=== PATIENT | female | born 1980 | race American Indian/Alaskan Native ===

== ENCOUNTER 2017-12-07 09:39 | Emergency (ER) | payer OTHER ==
[2017-12-07] MEDS ORDERED: NACL 0.9% 1000 ML 1,000 ML IV ONE (10:36)
[2017-12-07 11:16] LABS: Basophils % (Auto) 0.7 % (0.0-1.8); Eosinophils # (Auto) 0.1 K/mm3 (0.0-0.4); Hematocrit 35.9 % (30.3-42.9); Hemoglobin 11.6 gm/dl (10.1-14.3); Lymphocytes # (Auto) 1.9 K/mm3 (1.2-5.4); Lymphocytes % (Auto) 29.8 % (13.4-35.0); Mean Corpuscular HGB Conc 32 % (30-34); Mean Corpuscular Hemoglobin 31 pg (28-32); Mean Corpuscular Volume 95 fl (79-97); Monocytes # (Auto) 0.7 K/mm3 (0.0-0.8); Monocytes % (Auto) 10.4 % (0.0-7.3); Platelet Count 372 K/mm3 (140-440); Red Blood Count 3.79 M/mm3 (3.65-5.03); Red Cell Distribution Width 20.4 % (13.2-15.2)
[2017-12-07 11:24] LABS: INR 1.15 (0.87-1.13)
[2017-12-07 11:25] LABS: Partial Thromboplastin Time 30.4 Sec. (24.2-36.6)
[2017-12-07 11:29] LABS: Alanine Aminotransferase 45 units/L (7-56); BUN/Creatinine Ratio 8; Blood Urea Nitrogen 4 mg/dL (7-17); Calcium 9.5 mg/dL (8.4-10.2); Hemolysis Index 2; Lipase 14 units/L (13-60)
[2017-12-07] MEDS ORDERED: ATIVAN IV ONE (13:17)
--- NOTE | 2017-12-07 13:21 | Emergency Department Report ---
Blank Doc - Documentation Documentation: ms Souza is a 37 year-old woman with hx of GERD, anemia and alcohol abuse who presents with nausea, vomiting, diarrhea for one week. Triage labs reveal normal lytes, Hgb 11, elevated AST. On exam, tachycardic and tremulous. hx of alcohol withdrawal, feels like she is withdrawing now. Last drink last night. no hx of withdrawal seizure. ordering 2mg IV ativan and 1L NS. Transfer to main ER. Alcohol withdrawal Vital Signs 12/07/17 10:16 Temperature 98.5 F Pulse Rate 119 H Respiratory 18 Rate Blood Pressure 118/92 O2 Sat by Pulse 97 Oximetry Lab Results 12/07/17 12/07/17 12/07/17 Range/Units 10:56 10:56 10:56 WBC 6.4 (4.5-11.0) K/mm3 RBC 3.79 (3.65-5.03) M/mm3 Hgb 11.6 (10.1-14.3) gm/dl Hct 35.9 (30.3-42.9) % MCV 95 (79-97) fl MCH 31 (28-32) pg MCHC 32 (30-34) % RDW 20.4 H (13.2-15.2) % Plt Count 372 (140-440) K/mm3 Lymph % (Auto) 29.8 (13.4-35.0) % [place] % (Auto) 10.4 H (0.0-7.3) % Eos % (Auto) 1.0 (0.0-4.3) % Baso % (Auto) 0.7 (0.0-1.8) % Lymph # 1.9 (1.2-5.4) K/mm3 [place] # 0.7 (0.0-0.8) K/mm3 Eos # 0.1 (0.0-0.4) K/mm3 Baso # 0.0 (0.0-0.1) K/mm3 Seg Neutrophils % 58.1 (40.0-70.0) % Seg Neutrophils # 3.7 (1.8-7.7) K/mm3 PT 15.3 H (12.2-14.9) Sec. INR 1.15 H (0.87-1.13) APTT 30.4 (24.2-36.6) Sec. Sodium 138 (137-145) mmol/L Potassium 4.0 (3.6-5.0) mmol/L Chloride 98.5 (98-107) mmol/L Carbon Dioxide 21 L (22-30) mmol/L Anion Gap 23 mmol/L BUN 4 L (7-17) mg/dL Creatinine 0.5 L (0.7-1.2) mg/dL Estimated GFR > 60 ml/min BUN/Creatinine Ratio 8 % Glucose 94 (65-100) mg/dL Calcium 9.5 (8.4-10.2) mg/dL Total Bilirubin 0.60 (0.1-1.2) mg/dL AST 224 H (5-40) units/L ALT 45 (7-56) units/L Alkaline Phosphatase 86 (35-129) units/L Total Protein 8.2 (6.3-8.2) g/dL Albumin 4.0 (3.9-5) g/dL Albumin/Globulin Ratio 1.0 % Lipase 14 (13-60) units/L Blood Type Antibody Screen 12/07/17 Range/Units 10:56 WBC (4.5-11.0) K/mm3 RBC (3.65-5.03) M/mm3 Hgb (10.1-14.3) gm/dl Hct (30.3-42.9) % MCV (79-97) fl MCH (28-32) pg MCHC (30-34) % RDW (13.2-15.2) % Plt Count (140-440) K/mm3 Lymph % (Auto) (13.4-35.0) % [place] % (Auto) (0.0-7.3) % Eos % (Auto) (0.0-4.3) % Baso % (Auto) (0.0-1.8) % Lymph # (1.2-5.4) K/mm3 [place] # (0.0-0.8) K/mm3 Eos # (0.0-0.4) K/mm3 Baso # (0.0-0.1) K/mm3 Seg Neutrophils % (40.0-70.0) % Seg Neutrophils # (1.8-7.7) K/mm3 PT (12.2-14.9) Sec. INR (0.87-1.13) APTT (24.2-36.6) Sec. Sodium (137-145) mmol/L Potassium (3.6-5.0) mmol/L Chloride (98-107) mmol/L Carbon Dioxide (22-30) mmol/L Anion Gap mmol/L BUN (7-17) mg/dL Creatinine (0.7-1.2) mg/dL Estimated GFR ml/min BUN/Creatinine Ratio % Glucose (65-100) mg/dL Calcium (8.4-10.2) mg/dL Total Bilirubin (0.1-1.2) mg/dL AST (5-40) units/L ALT (7-56) units/L Alkaline Phosphatase (35-129) units/L Total Protein (6.3-8.2) g/dL Albumin (3.9-5) g/dL Albumin/Globulin Ratio % Lipase (13-60) units/L Blood Type O POSITIVE Antibody Screen Negative
[2017-12-07] MEDS ORDERED: ZOFRAN IV ONE (13:50)
--- NOTE | 2017-12-07 14:27 | Emergency Department Report ---
HPI - General Chief Complaint: Nausea/Vomiting/Diarrhea Time Seen by Provider: 12/07/17 13:04 - HPI HPI: 37-year-old AA female presents to the emergency department with a complaint of acute on chronic nausea, vomiting, diarrhea. Patient also admits to feeling anxious, fatigued, dizzy and tremulous. She openly admits to drinking alcohol on a daily basis. Sometimes she says she only drinks a few beers or drinks socially, and other times she drinks to get drunk. She last had any alcohol last night. The patient has been seen at [facility] a few times in the past regarding the nausea, vomiting and diarrhea, as well as some abdominal pain. She says she previously was diagnosed with acid reflux and has been on some medication for it without much relief. When the patient is drinking, she still will have some of the diarrhea but the nausea and vomiting improves. She also has a history of anemia of unknown etiology and has required transfusions in the past. ED Past Medical Hx - Past Medical History Previous Medical History?: Yes Hx GERD: Yes Additional medical history: anemia - Surgical History Past Surgical History?: Yes Additional Surgical History: c section x 3 - Social History Smoking Status: Never Smoker Substance Use Type: Alcohol ED Review of Systems ROS: Stated complaint: ABDOMINAL PAIN Other details as noted in HPI Comment: All other systems reviewed and negative Constitutional: other (fatigue). denies: chills, fever Eyes: denies: eye pain, eye discharge, vision change ENT: denies: ear pain, throat pain Respiratory: denies: cough, shortness of breath, wheezing Cardiovascular: denies: chest pain, palpitations Gastrointestinal: nausea, diarrhea Genitourinary: denies: urgency, dysuria, discharge Musculoskeletal: denies: back pain, joint swelling, arthralgia Skin: denies: rash, lesions Neurological: denies: headache, numbness Physical Exam - Physical Exam Vital Signs: Vital Signs 12/07/17 10:16 Temperature 98.5 F Pulse Rate 119 H Respiratory 18 Rate Blood Pressure 118/92 O2 Sat by Pulse 97 Oximetry Physical Exam: GENERAL: The patient is well-developed well-nourished. HENT: Normocephalic. Atraumatic. Patient has moist mucous membranes. EYES: Extraocular motions are intact. NECK: Supple. Trachea is midline. CHEST/LUNGS: Clear to auscultation. There is no respiratory distress noted. HEART/CARDIOVASCULAR: Regular. There is mild tachycardia. There is no murmur. ABDOMEN: Abdomen is soft, nontender. Patient has normal bowel sounds. There is no abdominal distention. SKIN: Skin is warm and dry. NEURO: The patient is awake, alert, and oriented. The patient is cooperative. The patient has no focal neurologic deficits. The patient has normal speech. Patient has a slight distal upper extremity tremor bilaterally. MUSCULOSKELETAL: There is no tenderness or deformity. There is no limitation range of motion. There is no evidence of acute injury. ED Course Vital Signs 12/07/17 10:16 Temperature 98.5 F Pulse Rate 119 H Respiratory 18 Rate Blood Pressure 118/92 O2 Sat by Pulse 97 Oximetry ED Medical Decision Making - Lab Data Result diagrams: 12/07/17 10:56 12/07/17 10:56 - Medical Decision Making Patient presents with the complaint of nausea, vomiting and diarrhea and also appears slightly tremulous. Some, if not all, of this appears to be related to alcohol withdrawal. The patient does admit to daily alcohol use and she appears to have some level of dependence. Patient came in tachycardic but afebrile. She is awake and alert and does not have any focal, motor or sensory deficits. Labs show an AST of 220 that is greater than a 5-1 ratio of AST compared to ALT. Despite her history of anemia, the hemoglobin is 11.6. Patient was given some Ativan for her withdrawal symptoms, some Zofran for the nausea and a banana bag. The patient has been accepted to [facility] - Differential Diagnosis GERD, gastroenteritis, food poisoning, alcohol withdrawal Critical Care Time: No Critical care attestation.: If time is entered above; I have spent that time in minutes in the direct care of this critically ill patient, excluding procedure time. ED Disposition Clinical Impression: Alcohol withdrawal Qualifiers: Complication of substance-induced condition: with unspecified complication Qualified Code(s): F10.239 - Alcohol dependence with withdrawal, unspecified Alcohol dependence Qualifiers: Substance use status: in withdrawal Complication of substance-induced condition : with unspecified complication Qualified Code(s): F10.239 - Alcohol dependence with withdrawal, unspecified Nausea & vomiting Qualifiers: Vomiting type: unspecified Vomiting Intractability: unspecified Qualified Code( s): R11.2 - Nausea with vomiting, unspecified Diarrhea Qualifiers: Diarrhea type: unspecified type Qualified Code(s): R19.7 - Diarrhea, unspecified Disposition: DC/TX-70 ANOTHER TYPE HLTHCARE Is pt being admited?: No Condition: Fair Referrals: PRIMARY CARE, [Primary Care Provider] - 3-5 Days Time of Disposition: 14:28
[2017-12-07] MEDS ORDERED: VITAMIN B-1 100 MG, FOLVITE 1 MG, INFUVITE 10 ML in NACL 0.9% 1000 ML 1,000 ML IV ONE (14:30)
[2017-12-07 14:41] VITALS: BP 129/89
== END 2017-12-07 16:03 | disposition other institution (70) ==
LOC: ED 09:39
DX: F10.239 Alcohol dependence with withdrawal, unspecified (principal); R11.2 Nausea with vomiting, unspecified; R19.7 Diarrhea, unspecified; R42 Dizziness and giddiness; K21.9 Gastro-esophageal reflux disease without esophagitis; R10.9 Unspecified abdominal pain
CPT/HCPCS: 36415; 80053; 83690; 85025; 85610; 85730; 86850; 86900; 86901; 96361; 96365; 96375; 99283; G0480; J2060; J2405; J3411; J7030; 80320

== ENCOUNTER 2017-12-07 15:58 | Inpatient (IN) | payer OTHER ==
[2017-12-07] MEDS ORDERED: ATIVAN IV PRN (16:39)
[2017-12-07] MEDS ORDERED: PROVENTIL IH PRN (16:39)
[2017-12-07] MEDS ORDERED: ROBAXIN PO PRN (16:39)
[2017-12-07] MEDS ORDERED: SODIUM CHLORIDE FLUSH SYRINGE 10 ML IV PRN (16:39)
[2017-12-07] MEDS ORDERED: ZOFRAN IV PRN (16:39)
[2017-12-07] MEDS ORDERED: BENTYL PO PRN (16:39)
--- NOTE | 2017-12-07 16:39 | History and Physical Report ---
History of Present Illness Date of admission: 12/07/17 16:17 Chief complaint: I feel sick, I need help History of present illness: 37 YO Female with GERD, Anemia, ETOH Dependence presents to ED for evaluation. Pt states that she has been feeling sick for the past 2 days. Pt acknowledges ETOH dependence and states that she drinks on a daily basis, but her last drink was last night. Pt acknowledges nausea, multiple episodes of vomiting, agitation , insomnia, dizziness, abdominal cramping,and multiple episodes of loose stools , feeling agitated, confused, headaches, hand tremors. Pt also acknowledges feeling anxious. Pt seen and evaluated in ED and found to have ETOH Dependence with Alcohol Withdrawl. Pt admitted to [facility] for medical stabilization. Past History Past Medical History: anemia, GERD Past Surgical History: Social history: alcohol abuse Family history: no significant family history (reviewed) Medications and Allergies Allergies Allergy/AdvReac Type Severity Reaction Status Date / Time No Known Allergies Allergy Unverified 12/07/17 10:35 Review of Systems Constitutional: no weight loss, no weight gain, no fever, no chills Ears, nose, mouth and throat: no ear pain, no ear discharge, no tinnitis, no decreased hearing, no nose pain, no nasal congestion, no nasal discharge Breasts: no change in shape, no swelling Cardiovascular: no chest pain, no orthopnea, no palpitations, no rapid/ irregular heart beat, no edema, no syncope Respiratory: no cough, no cough with sputum, no excessive sputum, no hemoptysis , no shortness of breath, no dyspnea on exertion Gastrointestinal: abdominal pain, nausea, vomiting, no change in bowel habits, no hematemesis, no coffee ground emesis, no melena, no hematochezia Genitourinary Female: no flank pain, no menorrhagia, no dysuria, no urinary frequency, no urgency Rectal: no pain, no incontinence, no bleeding Musculoskeletal: no neck stiffness, no neck pain, no shooting arm pain, no arm numbness/tingling, no low back pain, no shooting leg pain, no leg numbness/ tingling, no redness of joints Integumentary: no rash, no pruritis, no redness, no sores, no wounds, no jaundice Neurological: no transient paralysis, no paralysis, no weakness, no parathesias , no numbness, no tingling, no seizures, no syncope Psychiatric: anxiety, change in sleep habits, sleep disturbances, insomnia, change in appetite, hopelessness, anxiety attacks, confusion, irritability, mood swings, no paranoia, no depression Endocrine: no cold intolerance, no heat intolerance, no polyphagia, no excessive thirst, no polydipsia, no polyuria Hematologic/Lymphatic: no lymphadenopathy Allergic/Immunologic: no urticaria, no allergic rhinitis, no wheezing, no persistent infections, no anaphylaxis, no angioedema Exam - Constitutional General appearance: Present: mild distress - EENT Eyes: Present: PERRL ENT: hearing intact, clear oral mucosa - Neck Neck: Present: supple, normal ROM - Respiratory Respiratory effort: normal Respiratory: bilateral: CTA - Cardiovascular Rhythm: other (tachycardia) Heart Sounds: Present: S1 & S2. Absent: rub, click - Extremities Extremities: pulses symmetrical, No edema Peripheral Pulses: within normal limits - Abdominal General gastrointestinal: Present: soft, tender, non-distended, normal bowel sounds Female genitourinary: Present: normal - Integumentary Integumentary: Present: clear, dry, clammy, decreased turgor - Musculoskeletal Musculoskeletal: generalized weakness - Psychiatric Psychiatric: cooperative, agitated - Neurologic Neurologic: CNII-XII intact, moves all extremities Assessment and Plan - Patient Problems (1) Alcohol withdrawal Current Visit: No Status: Acute Qualifiers: Complication of substance-induced condition: with perceptual disturbance Qualified Code(s): F10.232 - Alcohol dependence with withdrawal with perceptual disturbance Plan to address problem: ETOH Withdrawl protocol: IVF resuscitation therapy, librium taper, Banana bag, anti emetic therapy, supportive care. (2) GERD (gastroesophageal reflux disease) Current Visit: Yes Status: Acute Qualifiers: Esophagitis presence: without esophagitis Qualified Code(s): K21.9 - Gastro -esophageal reflux disease without esophagitis Plan to address problem: PPi therapy, supportive care. (3) Alcohol dependence Current Visit: No Status: Acute Qualifiers: Substance use status: in withdrawal Complication of substance-induced condition: with unspecified complication Qualified Code(s): F10.239 - Alcohol dependence with withdrawal, unspecified Plan to address problem: Supportive care, ETOH withdrawl protocol, medical stabilization, (4) DVT prophylaxis Current Visit: Yes Status: Acute Plan to address problem: SCT to BLE while in bed.
[2017-12-07] MEDS ORDERED: VITAMIN B-1 100 MG, FOLVITE 1 MG, INFUVITE 10 ML in NACL 0.9% 1000 ML 2,000 ML IV ONE (16:41)
[2017-12-07] MEDS ORDERED: VITAMIN B-1 100 MG, FOLVITE 1 MG, INFUVITE 10 ML in NACL 0.9% 1000 ML 1,000 ML IV ONE (17:00)
[2017-12-07] MEDS: LIBRIUM PO SCH ×2 (19:21→23:26)
[2017-12-07] MEDS ORDERED: NACL 0.9% 1000 ML 1,000 ML ONE (19:25)
[2017-12-07] MEDS: SODIUM CHLORIDE FLUSH SYRINGE 10 ML IV SCH (21:33)
[2017-12-08] MEDS: TYLENOL PO PRN ×2 (00:41→22:24)
[2017-12-08] MEDS: LIBRIUM PO SCH ×2 (06:20→12:31)
[2017-12-08] MEDS: NACL 0.9% 1000 ML 1,000 ML IV SCH ×3 (06:20→22:13)
[2017-12-08] MEDS: SODIUM CHLORIDE FLUSH SYRINGE 10 ML IV SCH ×2 (09:47→22:26)
--- NOTE | 2017-12-08 16:43 | Progress Note ---
Assessment and Plan 37 YO Female with GERD, Anemia, ETOH Dependence presents to ED for evaluation. Pt states that she has been feeling sick for the past 2 days. Pt acknowledges ETOH dependence and states that she drinks on a daily basis, but her last drink was last night. Pt acknowledges nausea, multiple episodes of vomiting, agitation , insomnia, dizziness, abdominal cramping,and multiple episodes of loose stools , feeling agitated, confused, headaches, hand tremors. Pt also acknowledges feeling anxious. Pt seen and evaluated in ED and found to have ETOH Dependence with Alcohol Withdrawl. Had diarrheo for the past one week Pt admitted to [facility] for medical stabilization. - Alcohol withdrawal ETOH Withdrawl protocol: Continue with IVF resuscitation therapy, librium taper, Banana bag, anti emetic therapy, supportive care. Check labs CBC CCMP, Lipase - GERD (gastroesophageal reflux disease) PPi therapy, supportive care. - Diarrhea and weight loss Diarrhea was 4x today. Watery. No blood Stool studies. Had Negative HIV test in 08/2016. Declined another HIV rtesting now one now - Alcohol dependence Supportive care, ETOH withdrawl protocol, medical stabilization, - DVT prophylaxis SCT to BLE while in bed. Subjective Date of service: 12/08/17 Principal diagnosis: alcohol abuse admitted for detox Interval history: Patient seen and examined. Denies any agitation, chest pain or shortness of breath nausea vomiting. Objective - Exam Narrative Exam: Constitutional: Well-nourished well-developed. In no distress Head: Normocephalic atraumatic Eyes: Pupils are equal round and reactive to light Nose: No enlarged turbinates, no septal deviation. Mouth: Moist mucous membranes. Neck: Supple no thyromegaly. No bruit. No JVD Heart: Regular rate and rhythm, S1-S2 abnormal. No rubs murmurs or gallop Lungs: Clear to auscultation bilaterally no rales or rhonchi Abdomen: Soft, nontender. Bowel sound are present. Extremities: No edema no cyanosis and no clubbing. Neuro: Alert oriented Oriented x3. No focal sensory or motor deficit. Skin: No rashes no hyperemic spots Psychiatry: Calm. - Constitutional Vitals: Vital Signs - 12hr 12/08/17 12/08/17 12/08/17 07:50 10:00 13:55 Temperature 98.8 F 98.6 F Pulse Rate 111 H 101 H Respiratory 18 18 18 Rate Blood Pressure 97/66 119/79 O2 Sat by Pulse 99 100 Oximetry
[2017-12-08] MEDS: FEOSOL PO SCH (17:51)
[2017-12-08] MEDS ORDERED: NON-FORMULARY (Omeprazole [Omeprazole] 20 MG) PO SCH (18:00)
[2017-12-08 19:37] LABS: BUN/Creatinine Ratio 5; Blood Urea Nitrogen 3 mg/dL (7-17); Calcium 8.7 mg/dL (8.4-10.2); Hemolysis Index 122
[2017-12-08 19:40] LABS: Hematocrit 31.1 % (30.3-42.9); Hemoglobin 10.1 gm/dl (10.1-14.3); Mean Corpuscular HGB Conc 33 % (30-34); Mean Corpuscular Hemoglobin 30 pg (28-32); Mean Corpuscular Volume 94 fl (79-97); Red Blood Count 3.32 M/mm3 (3.65-5.03)
[2017-12-08 19:41] LABS: Red Cell Distribution Width 20.2 % (13.2-15.2)
[2017-12-08 20:15] LABS: Anisocytosis 1+; Platelet Clumps 1+; RBC Morphology Normal; Total Cells Counted 100
[2017-12-08 20:16] LABS: Platelet Count 228 K/mm3 (140-440)
[2017-12-08] MEDS: CARAFATE PO SCH (22:25)
[2017-12-08] MEDS: VISTARIL PO PRN (22:25)
[2017-12-09] MEDS: NACL 0.9% 1000 ML 1,000 ML IV SCH ×3 (06:15→22:16)
[2017-12-09 08:45] LABS: Basophils % (Auto) 0.8 % (0.0-1.8); Eosinophils # (Auto) 0.1 K/mm3 (0.0-0.4); Eosinophils % (Auto) 2.2 % (0.0-4.3); Hematocrit 29.3 % (30.3-42.9); Hemoglobin 9.4 gm/dl (10.1-14.3); Lymphocytes # (Auto) 1.6 K/mm3 (1.2-5.4); Mean Corpuscular HGB Conc 32 % (30-34); Mean Corpuscular Hemoglobin 31 pg (28-32); Mean Corpuscular Volume 96 fl (79-97); Monocytes # (Auto) 0.5 K/mm3 (0.0-0.8); Monocytes % (Auto) 10.8 % (0.0-7.3); Platelet Count 305 K/mm3 (140-440); Red Blood Count 3.04 M/mm3 (3.65-5.03)
[2017-12-09 08:54] LABS: Alanine Aminotransferase 29 units/L (7-56); Albumin 3.1 g/dL (3.9-5); BUN/Creatinine Ratio 8; Blood Urea Nitrogen 3 mg/dL (7-17); Calcium 8.7 mg/dL (8.4-10.2); Hemolysis Index 3
[2017-12-09 08:56] LABS: Red Cell Distribution Width 20.6 % (13.2-15.2)
[2017-12-09] MEDS: CARAFATE PO SCH ×2 (09:13→22:17)
[2017-12-09] MEDS: PROTONIX PO SCH (09:13)
[2017-12-09] MEDS: FEOSOL PO SCH (09:13)
[2017-12-09] MEDS: SODIUM CHLORIDE FLUSH SYRINGE 10 ML IV SCH (09:13)
--- NOTE | 2017-12-09 12:13 | Progress Note ---
Assessment and Plan - Patient Problems (1) GERD (gastroesophageal reflux disease) Current Visit: Yes Status: Acute Qualifiers: Esophagitis presence: without esophagitis Qualified Code(s): K21.9 - Gastro -esophageal reflux disease without esophagitis (2) Alcohol withdrawal delirium, acute, hyperactive Current Visit: Yes Status: Acute Plan to address problem: Agent delirium tremors has resolved. Shouldn't stabilize hemodynamically. Scheduled for transfer to behavioral inpatient unit in a.m. on Sunday. History Interval history: Ration doing much better. No evidence of DTs. Has run course of Librium. No shaking. No confusion. Patient alert and oriented 3. Await transfer tomorrow to inpatient behavioral unit Hospitalist Physical - Constitutional Vitals: Temp Pulse Resp BP Pulse Ox 98.5 F 104 H 18 109/75 99 12/09/17 12:02 12/09/17 12:02 12/09/17 12:02 12/09/17 12:02 12/09/17 12:02 General appearance: Present: mild distress - EENT Eyes: Present: PERRL, EOM intact ENT: hearing intact, clear oral mucosa, dentition normal - Neck Neck: Present: supple, normal ROM - Respiratory Respiratory effort: normal Respiratory: bilateral: CTA - Cardiovascular Rhythm: regular - Extremities Extremities: no ischemia, pulses intact, pulses symmetrical, No edema Peripheral Pulses: within normal limits - Abdominal General gastrointestinal: soft, non-tender, non-distended, normal bowel sounds - Integumentary Integumentary: Present: clear, warm, dry, erythema - Psychiatric Psychiatric: intact judgment & insight - Neurologic Neurologic: CNII-XII intact, moves all extremities Results - Labs CBC & Chem 7: 12/09/17 08:06 12/09/17 08:06 Labs: Laboratory Last Values WBC 4.4 K/mm3 (4.5-11.0) L 12/09/17 08:06 RBC 3.04 M/mm3 (3.65-5.03) L 12/09/17 08:06 Hgb 9.4 gm/dl (10.1-14.3) L 12/09/17 08:06 Hct 29.3 % (30.3-42.9) L 12/09/17 08:06 MCV 96 fl (79-97) 12/09/17 08:06 MCH 31 pg (28-32) 12/09/17 08:06 MCHC 32 % (30-34) 12/09/17 08:06 RDW 20.6 % (13.2-15.2) H 12/09/17 08:06 Plt Count 305 K/mm3 (140-440) 12/09/17 08:06 Lymph % (Auto) 36.0 % (13.4-35.0) H 12/09/17 08:06 [place] % (Auto) 10.8 % (0.0-7.3) H 12/09/17 08:06 Eos % (Auto) 2.2 % (0.0-4.3) 12/09/17 08:06 Baso % (Auto) 0.8 % (0.0-1.8) 12/09/17 08:06 Lymph # 1.6 K/mm3 (1.2-5.4) 12/09/17 08:06 [place] # 0.5 K/mm3 (0.0-0.8) 12/09/17 08:06 Eos # 0.1 K/mm3 (0.0-0.4) 12/09/17 08:06 Baso # 0.0 K/mm3 (0.0-0.1) 12/09/17 08:06 Add Manual Diff Complete 12/08/17 18:56 Total Counted 100 12/08/17 18:56 Seg Neutrophils % 50.2 % (40.0-70.0) 12/09/17 08:06 Seg Neuts % (Manual) 54.0 % (40.0-70.0) 12/08/17 18:56 Band Neutrophils % 0 % 12/08/17 18:56 Lymphocytes % (Manual) 34.0 % (13.4-35.0) 12/08/17 18:56 Reactive Lymphs % (Man) 0 % 12/08/17 18:56 Monocytes % (Manual) 10.0 % (0.0-7.3) H 12/08/17 18:56 Eosinophils % (Manual) 1.0 % (0.0-4.3) 12/08/17 18:56 Basophils % (Manual) 1.0 % (0.0-1.8) 12/08/17 18:56 Metamyelocytes % 0 % 12/08/17 18:56 Myelocytes % 0 % 12/08/17 18:56 Promyelocytes % 0 % 12/08/17 18:56 Blast Cells % 0 % 12/08/17 18:56 Nucleated RBC % Not Reportable 12/08/17 18:56 Seg Neutrophils # 2.2 K/mm3 (1.8-7.7) 12/09/17 08:06 Seg Neutrophils # Man 3.5 K/mm3 (1.8-7.7) 12/08/17 18:56 Band Neutrophils # 0.0 K/mm3 12/08/17 18:56 Lymphocytes # (Manual) 2.2 K/mm3 (1.2-5.4) 12/08/17 18:56 Abs React Lymphs (Man) 0.0 K/mm3 12/08/17 18:56 Monocytes # (Manual) 0.6 K/mm3 (0.0-0.8) 12/08/17 18:56 Eosinophils # (Manual) 0.1 K/mm3 (0.0-0.4) 12/08/17 18:56 Basophils # (Manual) 0.1 K/mm3 (0.0-0.1) 12/08/17 18:56 Metamyelocytes # 0.0 K/mm3 12/08/17 18:56 Myelocytes # 0.0 K/mm3 12/08/17 18:56 Promyelocytes # 0.0 K/mm3 12/08/17 18:56 Blast Cells # 0.0 K/mm3 12/08/17 18:56 WBC Morphology Not Reportable 12/08/17 18:56 Hypersegmented Neuts Not Reportable 12/08/17 18:56 Hyposegmented Neuts Not Reportable 12/08/17 18:56 Hypogranular Neuts Not Reportable 12/08/17 18:56 Smudge Cells Not Reportable 12/08/17 18:56 Toxic Granulation Not Reportable 12/08/17 18:56 Toxic Vacuolation Not Reportable 12/08/17 18:56 Dohle Bodies Not Reportable 12/08/17 18:56 Pelger-Huet Anomaly Not Reportable 12/08/17 18:56 Stanton Rods Not Reportable 12/08/17 18:56 Platelet Estimate Not Reportable 12/08/17 18:56 Clumped Platelets 1+ 12/08/17 18:56 Plt Clumps, EDTA Not Reportable 12/08/17 18:56 Large Platelets Not Reportable 12/08/17 18:56 Giant Platelets Not Reportable 12/08/17 18:56 Platelet Satelliting Not Reportable 12/08/17 18:56 Plt Morphology Comment Not Reportable 12/08/17 18:56 RBC Morphology Normal 12/08/17 18:56 Dimorphic RBCs Not Reportable 12/08/17 18:56 Polychromasia Not Reportable 12/08/17 18:56 Hypochromasia Not Reportable 12/08/17 18:56 Poikilocytosis Not Reportable 12/08/17 18:56 Anisocytosis 1+ 12/08/17 18:56 Microcytosis Not Reportable 12/08/17 18:56 Macrocytosis Not Reportable 12/08/17 18:56 Spherocytes Not Reportable 12/08/17 18:56 Pappenheimer Bodies Not Reportable 12/08/17 18:56 Sickle Cells Not Reportable 12/08/17 18:56 Target Cells Not Reportable 12/08/17 18:56 Tear Drop Cells Not Reportable 12/08/17 18:56 Ovalocytes Not Reportable 12/08/17 18:56 Helmet Cells Not Reportable 12/08/17 18:56 [place] Bodies Not Reportable 12/08/17 18:56 [place] Rings Not Reportable 12/08/17 18:56 Kaylin Cells Not Reportable 12/08/17 18:56 Bite Cells Not Reportable 12/08/17 18:56 Crenated Cell Not Reportable 12/08/17 18:56 Elliptocytes Not Reportable 12/08/17 18:56 Acanthocytes (Spur) Not Reportable 12/08/17 18:56 Rouleaux Not Reportable 12/08/17 18:56 Hemoglobin C Crystals Not Reportable 12/08/17 18:56 Schistocytes Not Reportable 12/08/17 18:56 Malaria parasites Not Reportable 12/08/17 18:56 Fransico Bodies Not Reportable 12/08/17 18:56 Hem Pathologist Commnt No 12/08/17 18:56 Sodium 141 mmol/L (137-145) 12/09/17 08:06 Potassium 4.0 mmol/L (3.6-5.0) 12/09/17 08:06 Chloride 106.9 mmol/L (98-107) 12/09/17 08:06 Carbon Dioxide 24 mmol/L (22-30) 12/09/17 08:06 Anion Gap 14 mmol/L 12/09/17 08:06 BUN 3 mg/dL (7-17) L 12/09/17 08:06 Creatinine 0.4 mg/dL (0.7-1.2) L 12/09/17 08:06 Estimated GFR > 60 ml/min 12/09/17 08:06 BUN/Creatinine Ratio 8 % 12/09/17 08:06 Glucose 83 mg/dL (65-100) 12/09/17 08:06 Calcium 8.7 mg/dL (8.4-10.2) 12/09/17 08:06 Phosphorus 3.30 mg/dL (2.5-4.5) 12/09/17 08:06 Magnesium 1.60 mg/dL (1.7-2.3) L 12/09/17 08:06 Total Bilirubin 0.30 mg/dL (0.1-1.2) 12/09/17 08:06 AST 62 units/L (5-40) H 12/09/17 08:06 ALT 29 units/L (7-56) 12/09/17 08:06 Alkaline Phosphatase 75 units/L (35-129) 12/09/17 08:06 Total Protein 6.1 g/dL (6.3-8.2) L D 12/09/17 08:06 Albumin 3.1 g/dL (3.9-5) L 12/09/17 08:06 Albumin/Globulin Ratio 1.0 % 12/09/17 08:06 Lipase 45 units/L (13-60) 12/08/17 18:56
[2017-12-09] MEDS: TYLENOL PO PRN (13:51)
[2017-12-10 07:36] LABS: Basophils % (Auto) 0.6 % (0.0-1.8); Eosinophils # (Auto) 0.1 K/mm3 (0.0-0.4); Eosinophils % (Auto) 1.8 % (0.0-4.3); Hematocrit 25.1 % (30.3-42.9); Hemoglobin 7.9 gm/dl (10.1-14.3); Lymphocytes # (Auto) 1.8 K/mm3 (1.2-5.4); Lymphocytes % (Auto) 34.9 % (13.4-35.0); Mean Corpuscular HGB Conc 32 % (30-34); Mean Corpuscular Hemoglobin 31 pg (28-32); Mean Corpuscular Volume 97 fl (79-97); Monocytes # (Auto) 0.6 K/mm3 (0.0-0.8); Monocytes % (Auto) 12.5 % (0.0-7.3); Platelet Count 301 K/mm3 (140-440)
[2017-12-10 07:39] LABS: Alanine Aminotransferase 20 units/L (7-56); Albumin 2.5 g/dL (3.9-5); BUN/Creatinine Ratio 10; Blood Urea Nitrogen 5 mg/dL (7-17); Calcium 8.3 mg/dL (8.4-10.2); Hemolysis Index 15
[2017-12-10 07:45] LABS: Red Cell Distribution Width 20.6 % (13.2-15.2)
[2017-12-10] MEDS: PROTONIX PO SCH (09:33)
[2017-12-10] MEDS: FEOSOL PO SCH (09:33)
[2017-12-10] MEDS: CARAFATE PO SCH ×2 (09:33→22:28)
[2017-12-10] MEDS: SODIUM CHLORIDE FLUSH SYRINGE 10 ML IV SCH (09:34)
[2017-12-10] MEDS: VISTARIL PO PRN (09:36)
[2017-12-10] MEDS ORDERED: MAGNESIUM SULFATE 2GM/50ML 2 GM/50 ML BAG IV ONE (09:53)
[2017-12-10 12:03] LABS: Iron 213 ug/dL (37-170); Total Iron Binding Capacity 268 mcg/dL (250-450)
[2017-12-10] MEDS: NACL 0.9% 1000 ML 1,000 ML IV SCH ×2 (14:30→22:26)
--- NOTE | 2017-12-10 18:26 | Discharge Summary ---
Providers - Providers Date of Admission: 12/07/17 16:17 Date of discharge: 12/10/17 Attending physician: ALTA RODRIGUEZ none Primary care physician: ADMIN PROG COORD Hospitalization Reason for admission: alcohol withdrawal Pertinent studies: none Procedures: none Hospital course: 37 YO Female with GERD, Anemia, ETOH Dependence presents to ED for evaluation. Pt states that she has been feeling sick for the past 2 days. Pt acknowledges ETOH dependence and states that she drinks on a daily basis, but her last drink was last night. Pt acknowledges nausea, multiple episodes of vomiting, agitation , insomnia, dizziness, abdominal cramping,and multiple episodes of loose stools , feeling agitated, confused, headaches, hand tremors. Pt also acknowledges feeling anxious. Pt seen and evaluated in ED and found to have ETOH Dependence with Alcohol Withdrawl. Had diarrheo for the past one week Pt admitted to [facility] for medical stabilization. on admission pt was commence of bana bag CIWA protocol with libruim. Hypoklameia and hypomganesemia identified and corrected. Pt strate having her period yessterday, heavy which is her usual she said. She has been anemic because of it. Hemoglobin dropped from 9.4 to 7.4. and furhte down to 7.2 One unit of blood ordered and given. Discharge yesterday held. Patient felt beeter advised to f/u with PCP who will refe to gyne for possible endometrial ablation since she had 5 children and her tube are tied. trmor and nrevoubnedsimprove and pt discharged Disposition: DC-01 TO HOME OR SELFCARE Time spent for discharge: 40 min - Discharge Diagnoses (1) Anemia Status: Acute (2) Alcohol withdrawal delirium, acute, hyperactive Status: Acute (3) GERD (gastroesophageal reflux disease) Status: Acute Qualifiers: Esophagitis presence: without esophagitis Qualified Code(s): K21.9 - Gastro -esophageal reflux disease without esophagitis Core Measure Documentation - Palliative Care Palliative Care/ Comfort Measures: Not Applicable - Core Measures Any of the following diagnoses?: none Exam - Physical Exam Narrative exam: Constitutional: Well-nourished well-developed. In no distress Head: Normocephalic atraumatic Eyes: Pupils are equal round and reactive to light. palor Nose: No enlarged turbinates, no septal deviation. Mouth: Moist mucous membranes. Neck: Supple no thyromegaly. No bruit. No JVD Heart: Regular rate and rhythm, S1-S2 abnormal. No rubs murmurs or gallop Lungs: Clear to auscultation bilaterally no rales or rhonchi Abdomen: Soft, nontender. Bowel sound are present. Extremities: No edema no cyanosis and no clubbing. Neuro: Alert oriented Oriented x3. No focal sensory or motor deficit. Skin: No rashes no hyperemic spots Psychiatry: Calm. - Constitutional Vitals: Temp Pulse Resp BP Pulse Ox 99.1 F 103 H 20 125/71 100 12/10/17 17:20 12/10/17 17:20 12/10/17 17:20 12/10/17 17:20 12/10/17 17:20 Plan Follow up with: PRIMARY CARE, [Primary Care Provider] - 7 Days Prescriptions: Ferrous Sulfate [Iron] 325 mg PO DAILY #60 tablet hydrOXYzine PAMOATE [Vistaril] 50 mg PO Q6H PRN #60 capsule PRN Reason: Anxiety Mild Methocarbamol [Robaxin TAB] 750 mg PO Q6H PRN #60 tablet PRN Reason: Muscle Ache Pantoprazole [Protonix TAB] 40 mg PO DAILY #30 tablet Sucralfate 1 gm PO BID #60 tablet
--- NOTE | 2017-12-10 19:05 | Progress Note ---
Assessment and Plan 37 YO Female with GERD, Anemia, ETOH Dependence presents to ED for evaluation. Pt states that she has been feeling sick for the past 2 days. Pt acknowledges ETOH dependence and states that she drinks on a daily basis, but her last drink was last night. Pt acknowledges nausea, multiple episodes of vomiting, agitation , insomnia, dizziness, abdominal cramping,and multiple episodes of loose stools , feeling agitated, confused, headaches, hand tremors. Pt also acknowledges feeling anxious. Pt seen and evaluated in ED and found to have ETOH Dependence with Alcohol Withdrawl. Had diarrheo for the past one week Pt admitted to [facility] for medical stabilization. - Alcohol withdrawal ETOH Withdrawl protocol: Continue with IVF resuscitation therapy, librium taper, Banana bag, anti emetic therapy, supportive care. Check labs CBC CCMP, Lipase - GERD (gastroesophageal reflux disease) PPi therapy, supportive care. - Hypomagnesemia. Supplemented. Repeat magnesium level. - Anemia from Menorrhagia Comments patient on ferrous sulfate 325 mg 1 by mouth twice a day. Vitamin C 500 mg by mouth qd. Counseling on considering endometrial ablation was done given the fact that patient has 5 children and tubal ligation - Diarrhea and weight loss - resolving Diarrhea was 4x today. Watery. No blood Stool studies. Had Negative HIV test in 08/2016. Declined another HIV rtesting now one now - Alcohol dependence Supportive care, ETOH withdrawal protocol, medical stabilization, - DVT prophylaxis SCT to BLE while in bed. - Disposition: Repeat magnesium level. Repeat H&H. If magnesium level is normal we'll discharge home tomorrow if H&H is 2 kn LAD and - Patient Problems (1) Anemia Current Visit: Yes Status: Acute (2) Alcohol withdrawal delirium, acute, hyperactive Current Visit: Yes Status: Acute (3) GERD (gastroesophageal reflux disease) Current Visit: Yes Status: Acute Qualifiers: Esophagitis presence: without esophagitis Qualified Code(s): K21.9 - Gastro -esophageal reflux disease without esophagitis Subjective Date of service: 12/10/17 Principal diagnosis: alcohol abuse admitted for detox Interval history: Patient seen and examined. Denies any agitation, chest pain or shortness of breath nausea vomiting. Patient seen to have started having heavy menstrual period today. Usually has heavy periods and passes clots during each menstruation. She has a history of anemia from menorrhagia. Objective - Exam Narrative Exam: Constitutional: Well-nourished well-developed.In no distress Head: Normocephalic atraumatic Eyes: Pupils are equal round and reactive to light. palor Nose: No enlarged turbinates, no septal deviation. Mouth: Moist mucous membranes. Neck: Supple no thyromegaly. No bruit. No JVD Heart: Regular rate and rhythm, S1-S2 abnormal. No rubs murmurs or gallop Lungs: Clear to auscultation bilaterally no rales or rhonchi Abdomen: Soft, nontender. Bowel sound are present. Extremities: No edema no cyanosis and no clubbing. Neuro: Alert oriented Oriented x3. No focal sensory or motor deficit. Skin: No rashes no hyperemic spots Psychiatry: Calm. - Constitutional Vitals: Vital Signs - 12hr 12/10/17 12/10/17 12/10/17 07:57 10:00 13:19 Temperature 98.9 F 99.1 F Pulse Rate 98 H Respiratory 20 20 20 Rate Blood Pressure 99/62 103/70 O2 Sat by Pulse 100 Oximetry 12/10/17 17:20 Temperature 99.1 F Pulse Rate 103 H Respiratory 20 Rate Blood Pressure 125/71 O2 Sat by Pulse 100 Oximetry - Labs CBC & Chem 7: 12/10/17 06:59 12/10/17 06:59 Labs: Abnormal lab results 12/10/17 12/10/17 12/10/17 Range/Units 06:59 06:59 11:10 RBC 2.60 L (3.65-5.03) M/mm3 Hgb 7.9 L (10.1-14.3) gm/dl Hct 25.1 L (30.3-42.9) % RDW 20.6 H (13.2-15.2) % [place] % (Auto) 12.5 H (0.0-7.3) % Chloride 110.5 H (98-107) mmol/L Carbon Dioxide 20 L (22-30) mmol/L BUN 5 L (7-17) mg/dL Creatinine 0.5 L (0.7-1.2) mg/dL Calcium 8.3 L (8.4-10.2) mg/dL Iron 213 H (37-170) ug/dL Total Protein 5.2 L (6.3-8.2) g/dL Albumin 2.5 L (3.9-5) g/dL
[2017-12-10] MEDS: VITAMIN C PO SCH (22:33)
[2017-12-11 05:40] LABS: Basophils % (Auto) 0.5 % (0.0-1.8); Eosinophils # (Auto) 0.1 K/mm3 (0.0-0.4); Eosinophils % (Auto) 1.9 % (0.0-4.3); Hematocrit 23.2 % (30.3-42.9); Hemoglobin 7.4 gm/dl (10.1-14.3); Lymphocytes # (Auto) 1.8 K/mm3 (1.2-5.4); Lymphocytes % (Auto) 33.6 % (13.4-35.0); Mean Corpuscular HGB Conc 32 % (30-34); Mean Corpuscular Hemoglobin 31 pg (28-32); Mean Corpuscular Volume 96 fl (79-97); Monocytes # (Auto) 0.6 K/mm3 (0.0-0.8); Platelet Count 317 K/mm3 (140-440); Red Blood Count 2.42 M/mm3 (3.65-5.03)
[2017-12-11 06:11] LABS: Alanine Aminotransferase 19 units/L (7-56); Albumin 2.4 g/dL (3.9-5); BUN/Creatinine Ratio 13; Blood Urea Nitrogen 5 mg/dL (7-17); Calcium 7.9 mg/dL (8.4-10.2); Hemolysis Index 3
--- NOTE | 2017-12-11 07:54 | Progress Note ---
Assessment and Plan 37 YO Female with GERD, Anemia, ETOH Dependence presents to ED for evaluation. Pt states that she has been feeling sick for the past 2 days. Pt acknowledges ETOH dependence and states that she drinks on a daily basis, but her last drink was last night. Pt acknowledges nausea, multiple episodes of vomiting, agitation , insomnia, dizziness, abdominal cramping,and multiple episodes of loose stools , feeling agitated, confused, headaches, hand tremors. Pt also acknowledges feeling anxious. Pt seen and evaluated in ED and found to have ETOH Dependence with Alcohol Withdrawl. Had diarrheo for the past one week Pt admitted to [facility] for medical stabilization. - Alcohol withdrawal ETOH Withdrawl protocol: Continue with IVF resuscitation therapy, librium taper, Banana bag, anti emetic therapy, supportive care. Check labs CBC CCMP, Lipase - GERD (gastroesophageal reflux disease) PPi therapy, supportive care. - Hypomagnesemia - corrected Supplemented. Repeat magnesium level. - Hypokalemia supplement - Anemia from Menorrhagia worsening. Xfue and tehnd/c home Comments patient on ferrous sulfate 325 mg 1 by mouth twice a day. Vitamin C 500 mg by mouth qd. Counseling on considering endometrial ablation was done given the fact that patient has 5 children and tubal ligation - Diarrhea and weight loss - resolving Diarrhea was 4x today. Watery. No blood Stool studies. Had Negative HIV test in 08/2016. Declined another HIV rtesting now one now - Alcohol dependence Supportive care, ETOH withdrawal protocol, medical stabilization, - DVT prophylaxis SCT to BLE while in bed. - Disposition: Repeat magnesium level. Repeat H&H. If magnesium level is normal we'll discharge home tomorrow if H&H is 2 kn LAD and - Patient Problems (1) Anemia Current Visit: Yes Status: Acute (2) Alcohol withdrawal delirium, acute, hyperactive Current Visit: Yes Status: Acute (3) GERD (gastroesophageal reflux disease) Current Visit: Yes Status: Acute Qualifiers: Esophagitis presence: without esophagitis Qualified Code(s): K21.9 - Gastro -esophageal reflux disease without esophagitis Subjective Date of service: 12/11/17 Principal diagnosis: alcohol abuse admitted for detox Interval history: Patient seen and examined. Denies any agitation, chest pain or shortness of breath nausea vomiting. Patient seen to have started having heavy menstrual period today. Usually has heavy periods and passes clots during each menstruation. She has a history of anemia from menorrhagia. Objective - Exam Narrative Exam: Constitutional: Well-nourished well-developed. In no distress Head: Normocephalic atraumatic Eyes: Pupils are equal round and reactive to light. palor Nose: No enlarged turbinates, no septal deviation. Mouth: Moist mucous membranes. Neck: Supple no thyromegaly. No bruit. No JVD Heart: Regular rate and rhythm, S1-S2 abnormal. No rubs murmurs or gallop Lungs: Clear to auscultation bilaterally no rales or rhonchi Abdomen: Soft, nontender. Bowel sound are present. Extremities: No edema no cyanosis and no clubbing. Neuro: Alert oriented Oriented x3. No focal sensory or motor deficit. Skin: No rashes no hyperemic spots Psychiatry:Calm. - Labs CBC & Chem 7: 12/11/17 05:00 12/11/17 05:00 Labs: Abnormal lab results 12/10/17 12/11/17 12/11/17 Range/Units 11:10 05:00 05:00 RBC 2.42 L (3.65-5.03) M/mm3 Hgb 7.4 L (10.1-14.3) gm/dl Hct 23.2 L (30.3-42.9) % RDW 21.0 H (13.2-15.2) % [place] % (Auto) 11.0 H (0.0-7.3) % Potassium 3.5 L (3.6-5.0) mmol/L Chloride 113.3 H (98-107) mmol/L Carbon Dioxide 20 L (22-30) mmol/L BUN 5 L (7-17) mg/dL Creatinine 0.4 L (0.7-1.2) mg/dL Calcium 7.9 L (8.4-10.2) mg/dL Iron 213 H (37-170) ug/dL AST 47 H (5-40) units/L Total Protein 5.1 L (6.3-8.2) g/dL Albumin 2.4 L (3.9-5) g/dL
[2017-12-11] MEDS ORDERED: K-DUR PO NR (08:21)
[2017-12-11] MEDS ORDERED: NACL 0.9% 500 ML 500 ML IV NR (09:00)
[2017-12-11] MEDS ORDERED: KCL 10MEQ/100ML 10 MEQ/100 ML BAG IV SCH (09:00)
[2017-12-11] MEDS: CARAFATE PO SCH (09:24)
[2017-12-11] MEDS: FEOSOL PO SCH (09:24)
[2017-12-11] MEDS: PROTONIX PO SCH (09:24)
[2017-12-11] MEDS: VITAMIN C PO SCH (09:24)
[2017-12-11] MEDS: TYLENOL PO PRN (10:07)
[2017-12-11] MEDS: SODIUM CHLORIDE FLUSH SYRINGE 10 ML IV SCH (10:22)
[2017-12-11 13:40] VITALS: BP 116/77
== END 2017-12-11 14:30 | disposition home or self-care (01) | DRG 760 ==
LOC: 2B-ACE 15:58 → UNDOADMIN 15:58 → MSU 16:17
PROVIDERS: ADMIT Internal Medicine; ATTEND Family Medicine
PROC: 30233N1 Transfusion of Nonautologous Red Blood Cells into Peripheral Vein, Percutaneous Approach (ICD-10-PCS; principal; 2017-12-11)
DX: N92.0 Excessive and frequent menstruation with regular cycle (principal); F10.231 Alcohol dependence with withdrawal delirium; K21.9 Gastro-esophageal reflux disease without esophagitis; D64.9 Anemia, unspecified; R19.7 Diarrhea, unspecified; E03.9 Hypothyroidism, unspecified; E83.42 Hypomagnesemia; Y90.9 Presence of alcohol in blood, level not specified; Z71.89 Other specified counseling
CPT/HCPCS: 36415; 80048; 80053; 82607; 82747; 83550; 83690; 83735; 84100; 85007; 85025; 86850; 86900; 86901; 86920; J3411; J3475; J3480; J7030; J7040; P9016; Q0177

== ENCOUNTER 2018-02-03 13:32 | Emergency (ER) | payer OTHER ==
[2018-02-03 16:02] LABS: Basophils % (Auto) 0.4 % (0.0-1.8); Eosinophils % (Auto) 0.4 % (0.0-4.3); Hematocrit 36.7 % (30.3-42.9); Hemoglobin 11.8 gm/dl (10.1-14.3); Lymphocytes # (Auto) 1.7 K/mm3 (1.2-5.4); Lymphocytes % (Auto) 24.1 % (13.4-35.0); Mean Corpuscular HGB Conc 32 % (30-34); Mean Corpuscular Hemoglobin 31 pg (28-32); Mean Corpuscular Volume 95 fl (79-97); Monocytes # (Auto) 0.7 K/mm3 (0.0-0.8); Monocytes % (Auto) 10.1 % (0.0-7.3); Platelet Count 247 K/mm3 (140-440); Red Blood Count 3.88 M/mm3 (3.65-5.03)
[2018-02-03 16:19] LABS: BUN/Creatinine Ratio 7; Blood Urea Nitrogen 4 mg/dL (7-17); Hemolysis Index 7
[2018-02-03] MEDS ORDERED: ATIVAN IV ONE (16:52)
[2018-02-03] MEDS ORDERED: NACL 0.9% 1000 ML 1,000 ML IV ONE (16:52)
[2018-02-03] MEDS ORDERED: ANTIVERT PO ONE (16:52)
[2018-02-03] MEDS ORDERED: ZOFRAN IV ONE (16:52)
--- NOTE | 2018-02-03 17:01 | Emergency Department Report ---
HPI - General Chief Complaint: Alcohol Time Seen by Provider: 02/03/18 16:42 - HPI HPI: Room 25 The patient is a 37-year-old female presenting with a chief complaint of vomiting, diarrhea and dizziness. The patient states for one week she's had nausea vomiting and diarrhea the patient states she's had a decreased appetite cramping along the lateral aspect of both sides of the abdomen. Patient denies any sick contacts. The patient states she normally drinks three 12 ounce beers daily and she stopped drinking them approximately 4 days ago. The patient states she is vertigo for the past 3 days. The patient also states she feels cold and shaky but this is chronic. Patient complains of pressure in her head Location: [See above] Duration: One week Quality: Nausea, cramping Severity: Moderate Modifying factors: [see above] Context: [see above] Mode of transportation: [not driving] ED Past Medical Hx - Past Medical History Hx GERD: Yes Additional medical history: anemia - Surgical History Past Surgical History?: No Additional Surgical History: c section x 3 - Family History Family history: no significant - Social History Smoking Status: Never Smoker Substance Use Type: None (denies illicit drug use), Alcohol (none 4 days) - Medications Home Medications: Home Medications Medication Instructions Recorded Confirmed Last Taken Type ALBUTEROL NEB's [Proventil 0.083% 2.5 mg IH Q4HRT PRN nebu 12/10/17 Unknown Rx NEBS] Ferrous Sulfate [Iron] 325 mg PO DAILY #60 tablet 12/10/17 Unknown Rx Methocarbamol [Robaxin TAB] 750 mg PO Q6H PRN #60 tablet 12/10/17 Unknown Rx Pantoprazole [Protonix TAB] 40 mg PO DAILY #30 tablet 12/10/17 Unknown Rx Sucralfate 1 gm PO BID #60 tablet 12/10/17 Unknown Rx hydrOXYzine PAMOATE [Vistaril] 50 mg PO Q6H PRN #60 capsule 12/10/17 Unknown Rx Ondansetron [Zofran ODT TAB] 8 mg PO Q8HR #20 tab.rapdis 02/04/18 Unknown Rx chlordiazePOXIDE [Librium] 25 mg PO BID #8 capsule 02/04/18 Unknown Rx ED Review of Systems ROS: Stated complaint: WITHDRAWL ALCHOL/DIZZY LIGHTHEADED Other details as noted in HPI Constitutional: denies: fever Eyes: denies: eye pain ENT: denies: throat pain Respiratory: no symptoms reported Cardiovascular: denies: chest pain Endocrine: no symptoms reported Gastrointestinal: abdominal pain (cramping), nausea, vomiting, diarrhea Genitourinary: denies: dysuria Musculoskeletal: denies: back pain Neurological: headache (pressure), vertigo Physical Exam - Physical Exam Vital Signs: Vital Signs 02/03/18 14:43 Temperature 98.8 F Pulse Rate 91 H Respiratory 18 Rate Blood Pressure 127/88 O2 Sat by Pulse 99 Oximetry Physical Exam: GENERAL: The patient is well-developed well-nourished female lying on stretcher not appearing to be in acute distress. [] HEENT: Normocephalic. Atraumatic. Extraocular motions are intact. Patient has moist mucous membranes. No nystagmus NECK: Supple. No meningitic signs are noted. Trachea midline CHEST/LUNGS: Clear to auscultation. There is no respiratory distress noted. HEART/CARDIOVASCULAR: Regular. There is no tachycardia. There is no gallop rub or murmur. ABDOMEN: Abdomen is soft, nontender. Patient has normal bowel sounds. There is no abdominal distention. SKIN: There is no rash. There is no edema. There is no diaphoresis. NEURO: The patient is awake, alert, and oriented. The patient is cooperative. The patient has no focal neurologic deficits. The patient has normal speech. Cranial nerves II through XII grossly intact. There is no drift. Mild tremulousness noted in the hand MUSCULOSKELETAL: There is no evidence of acute injury. ED Course Vital Signs 02/03/18 14:43 Temperature 98.8 F Pulse Rate 91 H Respiratory 18 Rate Blood Pressure 127/88 O2 Sat by Pulse 99 Oximetry - Consultations Consultation #1: 02/04/18 00:29 I spoke with mental health system sales consultant Mahendra kelley. He states that the patient desires to go to [facility] for alcohol detox. Unable to process at this time but can process patient for admission to [facility] in the a.m. Patient states he no longer wishes to wait until the a.m. for a detox program. Patient requesting to go home ED Medical Decision Making - Lab Data Result diagrams: 02/03/18 15:25 02/03/18 15:25 Laboratory Tests 02/03/18 02/03/18 02/03/18 15:25 15:25 15:25 WBC 6.9 RBC 3.88 Hgb 11.8 Hct 36.7 MCV 95 MCH 31 MCHC 32 RDW 17.0 H Plt Count 247 Lymph % (Auto) 24.1 Sargent % (Auto) 10.1 H Eos % (Auto) 0.4 Baso % (Auto) 0.4 Lymph # 1.7 Sargent # 0.7 Eos # 0.0 Baso # 0.0 Seg Neutrophils % 65.0 Seg Neutrophils # 4.5 Sodium 135 L Potassium 4.3 Chloride 95.3 L Carbon Dioxide 24 Anion Gap 20 BUN 4 L Creatinine 0.6 L Estimated GFR > 60 BUN/Creatinine Ratio 7 Glucose 107 H Calcium 9.0 Urine Color Urine Turbidity Urine pH Ur Specific Beaver Urine Protein Urine Glucose (UA) Urine Ketones Urine Blood Urine Nitrite Urine Bilirubin Urine Urobilinogen Ur Leukocyte Esterase Urine WBC (Auto) Urine RBC (Auto) U Epithel Cells (Auto) Urine Bacteria (Auto) Urine Mucus Salicylates Urine Opiates Screen Urine Methadone Screen Acetaminophen Ur Barbiturates Screen Ur Phencyclidine Scrn Ur Amphetamines Screen U Benzodiazepines Scrn Urine Cocaine Screen U Marijuana (THC) Screen Drugs of Abuse Note Plasma/Serum Alcohol < 0.01 02/03/18 02/03/18 02/03/18 15:27 15:28 18:55 WBC RBC Hgb Hct MCV MCH MCHC RDW Plt Count Lymph % (Auto) Sargent % (Auto) Eos % (Auto) Baso % (Auto) Lymph # Sargent # Eos # Baso # Seg Neutrophils % Seg Neutrophils # Sodium Potassium Chloride Carbon Dioxide Anion Gap BUN Creatinine Estimated GFR BUN/Creatinine Ratio Glucose Calcium Urine Color Red Urine Turbidity Clear Urine pH 6.0 Ur Specific Beaver 1.002 L Urine Protein 100 mg/dl Urine Glucose (UA) Neg Urine Ketones Neg Urine Blood Lg Urine Nitrite Neg Urine Bilirubin Neg Urine Urobilinogen < 2.0 Ur Leukocyte Esterase Neg Urine WBC (Auto) 2.0 Urine RBC (Auto) 1.0 U Epithel Cells (Auto) 1.0 Urine Bacteria (Auto) 1+ Urine Mucus Few Salicylates < 0.3 L Urine Opiates Screen Urine Methadone Screen Acetaminophen < 5.0 L Ur Barbiturates Screen Ur Phencyclidine Scrn Ur Amphetamines Screen U Benzodiazepines Scrn Urine Cocaine Screen U Marijuana (THC) Screen Drugs of Abuse Note Plasma/Serum Alcohol 02/03/18 18:55 WBC RBC Hgb Hct MCV MCH MCHC RDW Plt Count Lymph % (Auto) Sargent % (Auto) Eos % (Auto) Baso % (Auto) Lymph # Sargent # Eos # Baso # Seg Neutrophils % Seg Neutrophils # Sodium Potassium Chloride Carbon Dioxide Anion Gap BUN Creatinine Estimated GFR BUN/Creatinine Ratio Glucose Calcium Urine Color Urine Turbidity Urine pH Ur Specific Beaver Urine Protein Urine Glucose (UA) Urine Ketones Urine Blood Urine Nitrite Urine Bilirubin Urine Urobilinogen Ur Leukocyte Esterase Urine WBC (Auto) Urine RBC (Auto) U Epithel Cells (Auto) Urine Bacteria (Auto) Urine Mucus Salicylates Urine Opiates Screen Presumptive negative Urine Methadone Screen Presumptive negative Acetaminophen Ur Barbiturates Screen Presumptive negative Ur Phencyclidine Scrn Presumptive negative Ur Amphetamines Screen Presumptive negative U Benzodiazepines Scrn Presumptive negative Urine Cocaine Screen Presumptive negative U Marijuana (THC) Screen Presumptive negative Drugs of Abuse Note Disclamer Plasma/Serum Alcohol - Radiology Data Radiology results: report reviewed (CT head), image reviewed (CT head) [place] [id number] Cat Scan Report Signed Patient: FLORIN DONAHUE MR#: [id number] : 1980 Acct:[id number] Age/Sex: 37 / F ADM Date: 02/03/18 Loc: ED Attending Dr: Ordering Physician: DIVINA MORGAN MD Date of Service: 02/03/18 Procedure(s): CT head/brain wo con Accession Number(s): [id number] cc: DIVINA MORGAN MD FINAL REPORT EXAM: CT HEAD/BRAIN WO CON HISTORY: dizziness TECHNIQUE: 2.5 millimeter axial images from the skullbase to the vertex. Comparison: None FINDINGS: There is no evidence of an acute intracranial process, intracranial hemorrhage or mass effect. The ventricles are normal size. The visualized portions of the orbits, paranasal and mastoid sinuses are unremarkable. IMPRESSION: 1. No evidence of an acute intracranial process, intracranial hemorrhage or mass effect. If there is a clinical suspicion of an acute intracranial process and if further imaging is required, MRI may be helpful. Transcribed By: ED Dictated By: FERNANDO SOMMER MD Electronically Authenticated By: FERNANDO SOMMER MD Signed Date/Time: 02/03/181758 DD/ 58 TD/TT: 02/03/181758 - Medical Decision Making Diagnoses at discharge (due to a problem with [employer] I'm not able to enter the patient's diagnoses in the text field, so they are listed below: Nausea vomiting and diarrhea Alcohol abuse - Differential Diagnosis gastroenteritis, vertigo, ICH, alcohol withdrawal Critical care attestation.: If time is entered above; I have spent that time in minutes in the direct care of this critically ill patient, excluding procedure time. ED Disposition Disposition: DC-01 TO HOME OR SELFCARE Is pt being admited?: No Does the pt Need Aspirin: No Condition: Stable Instructions: Abuse of Alcohol (ED) Additional Instructions: Return to the emergency department immediately should you develop worsening symptoms, fever, inability to tolerate food or liquid or any other concerns. Prescriptions: chlordiazePOXIDE [Librium] 25 mg PO BID #8 capsule Ondansetron [Zofran ODT TAB] 8 mg PO Q8HR #20 tab.bety Referrals: PRIMARY CARE, [Primary Care Provider] - 3-5 Days Time of Disposition: 00:35
--- NOTE | 2018-02-03 18:00 | Cat Scan Report ---
FINAL REPORT EXAM: CT HEAD/BRAIN WO CON HISTORY: dizziness TECHNIQUE: 2.5 millimeter axial images from the skullbase to the vertex. Comparison: None FINDINGS: There is no evidence of an acute intracranial process, intracranial hemorrhage or mass effect. The ventricles are normal size. The visualized portions of the orbits, paranasal and mastoid sinuses are unremarkable. IMPRESSION: 1. No evidence of an acute intracranial process, intracranial hemorrhage or mass effect. If there is a clinical suspicion of an acute intracranial process and if further imaging is required, MRI may be helpful.
[2018-02-03] MEDS ORDERED: VITAMIN B-1 100 MG, FOLVITE 1 MG, INFUVITE 10 ML, MAGNESIUM SULFATE 2 GM in NACL 0.9% 1... IV ONE (18:42)
[2018-02-03 19:35] LABS: Amphetamine Screen,Urine PRESUMPTIVE NEGATIVE; Benzodiazepines Screen,Urine PRESUMPTIVE NEGATIVE; Cannabinoid Screen,Urine PRESUMPTIVE NEGATIVE; Cocaine Screen,Urine PRESUMPTIVE NEGATIVE; Methadone Screen,Urine PRESUMPTIVE NEGATIVE; Opiate Screen,Urine PRESUMPTIVE NEGATIVE
[2018-02-03 19:41] LABS: Bacteria,Urine 1+ /HPF (Negative); Bilirubin,Urine NEG (Negative); Blood,Urine LG (Negative); Color,Urine Red (Yellow); Mucus,Urine FEW /HPF; Urobilinogen,Urine < 2.0 mg/dL (<2.0)
[2018-02-03 21:13] VITALS: BP 121/85
== END 2018-02-04 00:50 | disposition home or self-care (01) ==
LOC: ED 13:32
DX: F10.10 Alcohol abuse, uncomplicated (principal); K21.9 Gastro-esophageal reflux disease without esophagitis; Z86.2 Personal history of diseases of the blood and blood-forming organs and certain disorders involving the immune mechanism
CPT/HCPCS: 36415; 70450; 80048; 80307; 81001; 85025; 96361; 96365; 96366; 96375; 99284; G0480; J2060; J2405; J3411; J3475; J7030; 80320

== ENCOUNTER 2018-10-24 12:54 | Emergency (ER) | payer MEDICAID, OTHER ==
--- NOTE | 2018-10-24 13:24 | Emergency Department Report ---
Blank Doc - Documentation Documentation: This is a 38-year-old female that presents with bilateral upper and lower ext. tingling sensation with n/v. Denies any other complaints or symptoms. This initial assessment/diagnostic orders/clinical plan/treatment(s) is/are subject to change based on patient's health status, clinical progression and re- assessment by fellow clinical providers in the ED. Further treatment and workup at subsequent clinical providers discretion. Patient/guardians urged not to elope from the ED as their condition may be serious if not clinically assessed and managed. Initial orders include: 1- Patient sent to [facility] for further evaluation and treatment 2- labs
[2018-10-24] MEDS ORDERED: NACL 0.9% 1000 ML 1,000 ML IV ONE (13:55)
[2018-10-24 14:01] LABS: Bilirubin,Urine NEG (Negative); Blood,Urine NEG (Negative); Color,Urine Straw (Yellow); Mucus,Urine FEW /HPF; Protein,Urine <15 mg/dL mg/dL (Negative); Urobilinogen,Urine < 2.0 mg/dL (<2.0); WBC,Urine < 1.0 /HPF (0.0-6.0)
--- NOTE | 2018-10-24 14:37 | Emergency Department Report ---
HPI - General Chief Complaint: Nausea/Vomiting/Diarrhea Time Seen by Provider: 10/24/18 13:22 - HPI HPI: 38-year-old female presents to the emergency department with complaint of nausea and vomiting, decreased appetite and decreased oral intake. She will have some intermittent abdominal pains but denies any at this time. She says that when she tries to eat something she suddenly gets very nauseated. She also gets nauseated when she wears something tight around her abdomen. She says that she was here previously for drug rehabilitation and was evaluated for some nausea, vomiting and GI issues at that time and was found to have very bad acid reflux. The patient also complains of some numbness and tingling to the fingers and toes. While the patient denies any current bleeding, she says that she has a significant history of anemia that has required transfusions in the past, and she is concerned that she could be very anemic again. The patient has a primary care physician but cannot currently remember their name but has also not seen them regarding her symptoms. She does not have any division chair. No recent travel or sick contacts at home. She has not taken anything for her symptoms prior to arrival today. ED Past Medical Hx - Past Medical History Hx Congestive Heart Failure: No Hx Diabetes: No Hx GERD: Yes Hx Asthma: No Hx COPD: No Hx HIV: No Additional medical history: anemia - Surgical History Additional Surgical History: c section x 3 - Social History Smoking Status: Never Smoker Substance Use Type: None - Medications Home Medications: Home Medications Medication Instructions Recorded Confirmed Last Taken Type ALBUTEROL NEB's [Proventil 0.083% 2.5 mg IH Q4HRT PRN nebu 12/10/17 Unknown Rx NEBS] Sucralfate 1 gm PO BID #60 tablet 12/10/17 Unknown Rx hydrOXYzine PAMOATE [Vistaril] 50 mg PO Q6H PRN #60 capsule 12/10/17 Unknown Rx methOCARBAMOL [Robaxin TAB] 750 mg PO Q6H PRN #60 tablet 12/10/17 Unknown Rx Ondansetron [Zofran ODT TAB] 8 mg PO Q8HR #20 tab.rapdis 02/04/18 Unknown Rx chlordiazePOXIDE [Librium] 25 mg PO BID #8 capsule 02/04/18 Unknown Rx Ferrous Sulfate [Iron 325 MG] 325 mg PO DAILY #30 tablet 10/24/18 Unknown Rx Ondansetron [Zofran Odt] 4 mg PO Q8HR PRN #15 tab.rapdis 10/24/18 Unknown Rx Pantoprazole [Protonix TAB] 40 mg PO DAILY #30 tablet 10/24/18 Unknown Rx ED Review of Systems ROS: Stated complaint: HANDS/FEET NUMB/TINGLE/VOMIT Other details as noted in HPI Constitutional: other (fatigue). denies: fever Eyes: denies: eye pain, vision change ENT: denies: ear pain, throat pain Respiratory: denies: cough, shortness of breath Cardiovascular: denies: chest pain, palpitations Gastrointestinal: abdominal pain (intermittent), nausea, vomiting Genitourinary: denies: urgency, dysuria Musculoskeletal: denies: back pain, arthralgia Skin: denies: rash Neurological: paresthesias. denies: headache Physical Exam - Physical Exam Vital Signs: Vital Signs 10/24/18 13:23 Temperature 98.8 F Pulse Rate 115 H Respiratory 18 Rate Blood Pressure 99/67 O2 Sat by Pulse 100 Oximetry Physical Exam: GENERAL: The patient is well-developed well-nourished. HENT: Normocephalic. Atraumatic. Patient has moist mucous membranes. EYES: Extraocular motions are intact. Pupils equal reactive to light bilaterally. NECK: Supple. Trachea is midline. CHEST/LUNGS: Clear to auscultation. There is no respiratory distress noted. HEART/CARDIOVASCULAR: Regular. There is mild tachycardia. There is no murmur. ABDOMEN: Abdomen is soft, nontender. Patient has normal bowel sounds. There is no abdominal distention. SKIN: Skin is warm and dry. NEURO: The patient is awake, alert, and oriented. The patient is cooperative. The patient has no focal neurologic deficits. The patient has normal speech. MUSCULOSKELETAL: There is no tenderness or deformity. There is no limitation range of motion. There is no evidence of acute injury. ED Course Vital Signs 10/24/18 13:23 Temperature 98.8 F Pulse Rate 115 H Respiratory 18 Rate Blood Pressure 99/67 O2 Sat by Pulse 100 Oximetry ED Medical Decision Making - Lab Data Result diagrams: 10/24/18 Unknown 10/24/18 Unknown - Radiology Data Radiology results: report reviewed, image reviewed interpreted by me: Abdominal x-ray shows nonspecific nonobstructive bowel gas PROCEDURE: US ABDOMEN LIMITED TECHNIQUE: Real-time sonography was performed of the right upper quadrant with image documentation. HISTORY: Abd pain, elevated LFTs COMPARISONS: None . FINDINGS: There is mild increased echogenicity dependently in the gallbladder suggesting a small amount of sludge. Gallbladder is otherwise unremarkable. Gallbladder wall does not appear to be significantly thickened. Common bile duct is normal caliber measuring 4 mm. The intrahepatic ducts are not distended. Liver echogenicity is diffusely increased consistent with fatty infiltration. No discrete liver lesions are identified. No ascites is visualized. Visualized pancreas is unremarkable. Portions are obscured by bowel gas and cannot be commented on. Proximal abdominal aorta show no abnormalities. The entire abdominal aorta was not visualized. Visualized inferior vena cava is also unremarkable. Right kidney showed no abnormalities. . IMPRESSION: Minimal increased echogenicity dependently in the gallbladder suggesting small amount of sludge. . Gallbladder is otherwise unremarkable. Fatty infiltration of the liver. No other abnormalities are seen. This document is electronically signed by Rafi Segovia MD., Oct 24 2018 04:19:19 PM ET Transcribed By: HUDSON Dictated By: RAFI SEGOVIA MD Electronically Authenticated By: RAFI SEGOVIA MD Signed Date/Time: 10/24/18 1621 - Medical Decision Making This patient presents to the emergency department with some generalized complaints of fatigue, decreased appetite, decreased oral intake secondary to some nausea and vomiting. The patient later admits that she is a chronic alcohol user with some probable history of dependence. She has been in detox/rehabilitation in the past for this. Abdominal x-ray shows nonspecific nonobstructive bowel gas. An ultrasound was sent that shows some gallbladder sludge and some fatty infiltration of the liver but otherwise no acute process. The patient's labs were mostly unremarkable. An IV was placed and she was given some IV fluid resuscitation with banana bag and some Zofran for nausea. Her vital signs and stable throughout her ED course. The patient was feeling imp roved after the treatments. She'll be discharged home with some Zofran and referrals for primary care and gastroenterology. She was able to pass an oral challenge prior to discharge. She will return to the ER with any worsening of her symptoms or any acute distress. - Differential Diagnosis food poisoning, alcohol withdrawal, alcohol dependence, gastroenteritis Critical Care Time: No Critical care attestation.: If time is entered above; I have spent that time in minutes in the direct care of this critically ill patient, excluding procedure time. ED Disposition Clinical Impression: History of alcohol abuse, Fatty infiltration of liver, Gallbladder sludge GERD (gastroesophageal reflux disease) Qualifiers: Esophagitis presence: esophagitis presence not specified Qualified Code(s): K21.9 - Gastro-esophageal reflux disease without esophagitis Anemia Qualifiers: Anemia type: unspecified type Qualified Code(s): D64.9 - Anemia, unspecified Disposition: TO HOME OR SELFCARE Is pt being admited?: No Condition: Stable Instructions: Gastroesophageal Reflux Disease (ED), Abuse of Alcohol (ED), Acute Nausea and Vomiting (ED) Additional Instructions: Please follow up with a primary care physician in the next few days. I am giving him a referral for Dr. Baez, a local division chair, to follow up regarding your issues with nausea, vomiting, decreased appetite and oral intake, your elevated liver enzymes and the fatty infiltration of the liver found on ultrasound. Please try and quit drinking, or at least decrease the quantity. Take the medications as prescribed. Return to the emergency Department with any worsening of your symptoms or any acute distress. Prescriptions: Ferrous Sulfate [Iron 325 MG] 325 mg PO DAILY #30 tablet Pantoprazole [Protonix TAB] 40 mg PO DAILY #30 tablet Ondansetron [Zofran Odt] 4 mg PO Q8HR PRN #15 tab.rapdis PRN Reason: Nausea Referrals: [facility] [Outside] - 2-3 Days LATANYA CHAN DO [Staff Physician] - 2-3 Days ARIANNA BAEZ MD [Staff Physician] - 2-3 Days
[2018-10-24 14:44] LABS: Hemoglobin 8.5 gm/dl (10.1-14.3); Red Blood Count 3.78 M/mm3 (3.65-5.03)
[2018-10-24 14:45] LABS: Hematocrit 28.5 % (30.3-42.9); Mean Corpuscular HGB Conc 30 % (30-34); Mean Corpuscular Volume 75 fl (79-97); Platelet Count 306 K/mm3 (140-440); Red Cell Distribution Width 21.7 % (13.2-15.2)
[2018-10-24 14:47] LABS: Alanine Aminotransferase 72 units/L (7-56); Albumin 3.4 g/dL (3.9-5); BUN/Creatinine Ratio 8; Bilirubin,Direct 0.2 mg/dL (0-0.2); Blood Urea Nitrogen 3 mg/dL (7-17); Calcium 9.2 mg/dL (8.4-10.2); Hemolysis Index 10
[2018-10-24 15:30] LABS: Anisocytosis 1+; Basophils % (Manual) 0 % (0.0-1.8); Hypochromasia 2+; Total Cells Counted 100
[2018-10-24 15:31] LABS: Macrocytosis Few; Platelet Estimate Consistent w Auto
[2018-10-24] MEDS ORDERED: VITAMIN B-1 100 MG, FOLVITE 1 MG, INFUVITE 10 ML in NACL 0.9% 1000 ML 1,000 ML IV ONE (15:56)
--- NOTE | 2018-10-24 16:21 | Ultrasound Report ---
PROCEDURE: US ABDOMEN LIMITED TECHNIQUE: Real-time sonography was performed of the right upper quadrant with image documentation. HISTORY: Abd pain, elevated LFTs COMPARISONS: None . FINDINGS: There is mild increased echogenicity dependently in the gallbladder suggesting a small amount of slud ge. Gallbladder is otherwise unremarkable. Gallbladder wall does not appear to be significantly thick ened. Common bile duct is normal caliber measuring 4 mm. The intrahepatic ducts are not distended. Li janki echogenicity is diffusely increased consistent with fatty infiltration. No discrete liver lesions are identified. No ascites is visualized. Visualized pancreas is unremarkable. Portions are obscured by bowel gas and cannot be commented on. Proximal abdominal aorta show no abnormalities. The entire abdominal aorta was not visualized. Visualized inferior vena cava is also unremarkable. Right kidney showed no abnormalities. . IMPRESSION: Minimal increased echogenicity dependently in the gallbladder suggesting small amount of sludge. . Gallbladder is otherwise unremarkable. Fatty infiltration of the liver. No other abnormalities are seen. This document is electronically signed by Rafi Segovia MD., Oct 24 2018 04:19:19 PM ET
--- NOTE | 2018-10-24 16:24 | XRay Report ---
PROCEDURE: XR ABDOMEN 2V TECHNIQUE: AP upright and supine abdominal radiographs. HISTORY: Abd pain UPT COMPARISONS: None FINDINGS: No free air. No bowel obstruction. No organomegaly and no masses. No abnormal calcifications. No acute osseous abnormality. IMPRESSION: No acute intra-abdominal abnormality. This document is electronically signed by Sumaya Royal., Oct 24 2018 04:22:31 PM ET
[2018-10-24 18:20] VITALS: BP 106/74
== END 2018-10-24 18:19 | disposition home or self-care (01) ==
LOC: ED 12:54
DX: K21.9 Gastro-esophageal reflux disease without esophagitis (principal); F10.10 Alcohol abuse, uncomplicated; D64.9 Anemia, unspecified; K82.8 Other specified diseases of gallbladder; K76.0 Fatty (change of) liver, not elsewhere classified
CPT/HCPCS: 36415; 74019; 76705; 80048; 80076; 81001; 83690; 84703; 85007; 85025; 96361; 96365; 99284; J3411; J7030

== ENCOUNTER 2019-11-06 20:52 | Emergency (ER) | payer MEDICAID ==
--- NOTE | 2019-11-06 21:16 | Emergency Department Report ---
Blank Doc - Documentation Documentation: 39-year-old female that presents with bilateral leg swelling. Exam: edema 3+ to bilateral legs. Tachycardia in triage. This initial assessment/diagnostic orders/clinical plan/treatment(s) is/are subject to change based on patient's health status, clinical progression and re- assessment by fellow clinical providers in the ED. Further treatment and workup at subsequent clinical providers discretion. Patient/guardians urged not to elope from the ED as their condition may be serious if not clinically assessed and managed. Initial orders include: 1- Patient sent to Main ED for further evaluation and treatment 2- EKG 3- labs
--- NOTE | 2019-11-06 21:52 | Emergency Department Report ---
ED Extremity Problem HPI - General Chief complaint: Extremity Problem,Nontraumatic Stated complaint: BOTH ANKLES SWOLLEN Time Seen by Provider: 11/06/19 21:15 Source: patient Mode of arrival: Ambulatory Limitations: No Limitations - History of Present Illness Initial comments: Patient is a 39-year-old female that presents emergency room with complaints of swelling to her bilateral lower extremities. Patient states the swelling is in her ankles and her feet. Patient states is pretty common when she receives IV fluids in the hospital. Patient denies shortness of breath. Patient denies chest pain. Patient denies pain in her legs. Patient denies abdominal pain. Patient denies fever chills. Patient denies nausea vomiting. Patient denies difficulties walking. Patient states she has a long history of drinking but quit drinking 7 days ago. Patient denies recent travel. Patient denies recent international travel. Patient denies exposure to the novel coronavirus. Patient denies sick contacts. Patient denies fever and chills. Patient denies cough. Patient denies diarrhea. Patient denies coming in contact with anybody with symptoms of the novel coronavirus. MD Complaint: extremity swelling -: Gradual Location: bilateral lower extremity History of Same: Yes -: No myalgia, No arthralgia, No fever, No associated dyspnea, No associated chest pain Consistency: constant Improves with: rest, other (elevation) Worsens with: walking Associated Symptoms: denies: chest pain, shortness of breath, fever, myalgias, arthralgias, rash - Related Data Previous Rx's Medication Instructions Recorded Last Taken Type Amitriptyline [Elavil] 25 mg PO QHS #30 tablet 10/29/19 Unknown Rx Docusate Sodium [Colace] 100 mg PO BID #60 capsule 10/29/19 Unknown Rx Ferrous Sulfate [Feosol 325 MG tab] 325 mg PO DAILY #30 tablet 10/29/19 Unknown Rx Folic Acid [Folvite] 1 mg PO QDAY #30 tablet 10/29/19 Unknown Rx Ondansetron [Zofran Odt] 4 mg PO Q8HR #20 tab.rapdis 10/29/19 Unknown Rx Pantoprazole [Protonix TAB] 40 mg PO QDAY #30 10/29/19 Unknown Rx Furosemide [Lasix] 20 mg PO QDAY PRN #15 tablet 11/07/19 Unknown Rx Potassium Chloride [K-Dur] 20 meq PO QDAY #30 tablet 11/07/19 Unknown Rx Allergies Allergy/AdvReac Type Severity Reaction Status Date / Time No Known Allergies Allergy Verified 10/24/18 12:59 ED Review of Systems ROS: Stated complaint: BOTH ANKLES SWOLLEN Other details as noted in HPI Constitutional: denies: chills, fever Eyes: denies: eye pain, eye discharge, vision change ENT: denies: ear pain, throat pain Respiratory: denies: cough, shortness of breath, wheezing Cardiovascular: edema. denies: chest pain, palpitations Endocrine: no symptoms reported Gastrointestinal: denies: abdominal pain, nausea, diarrhea Genitourinary: denies: urgency, dysuria, discharge Musculoskeletal: denies: back pain, joint swelling, arthralgia Skin: denies: rash, lesions Neurological: denies: headache, weakness, paresthesias Psychiatric: denies: anxiety, depression Hematological/Lymphatic: denies: easy bleeding, easy bruising ED Past Medical Hx - Past Medical History Previous Medical History?: Yes Hx Congestive Heart Failure: No Hx Diabetes: No Hx GERD: Yes Hx Liver Disease: Yes (fatty liver) Hx Asthma: No Hx COPD: No Hx HIV: No Additional medical history: anemia. Chronic liver condition - Surgical History Past Surgical History?: Yes Additional Surgical History: c section x 3 - Family History Family history: no significant - Social History Smoking Status: Never Smoker Substance Use Type: None - Medications Home Medications: Home Medications Medication Instructions Recorded Confirmed Last Taken Type Amitriptyline [Elavil] 25 mg PO QHS #30 tablet 10/29/19 Unknown Rx Docusate Sodium [Colace] 100 mg PO BID #60 capsule 10/29/19 Unknown Rx Ferrous Sulfate [Feosol 325 MG tab] 325 mg PO DAILY #30 tablet 10/29/19 Unknown Rx Folic Acid [Folvite] 1 mg PO QDAY #30 tablet 10/29/19 Unknown Rx Ondansetron [Zofran Odt] 4 mg PO Q8HR #20 tab.rapdis 10/29/19 Unknown Rx Pantoprazole [Protonix TAB] 40 mg PO QDAY #30 10/29/19 Unknown Rx Furosemide [Lasix] 20 mg PO QDAY PRN #15 tablet 11/07/19 Unknown Rx Potassium Chloride [K-Dur] 20 meq PO QDAY #30 tablet 11/07/19 Unknown Rx ED Physical Exam - General Limitations: No Limitations General appearance: alert, in no apparent distress - Head Head exam: Present: atraumatic, normocephalic - Eye Eye exam: Present: normal appearance - ENT ENT exam: Present: mucous membranes moist - Neck Neck exam: Present: normal inspection - Respiratory Respiratory exam: Present: normal lung sounds bilaterally. Absent: respiratory distress - Cardiovascular Cardiovascular Exam: Present: regular rate, normal rhythm. Absent: systolic murmur, diastolic murmur, rubs, gallop - GI/Abdominal GI/Abdominal exam: Present: soft, normal bowel sounds - Extremities Exam Extremities exam: Present: normal inspection, full ROM, pedal edema (Bilateral lower extremity). Absent: tenderness, calf tenderness - Back Exam Back exam: Present: normal inspection - Neurological Exam Neurological exam: Present: alert, oriented X3 - Psychiatric Psychiatric exam: Present: normal affect, normal mood - Skin Skin exam: Present: warm, dry, intact, normal color. Absent: rash ED Course Vital Signs 11/06/19 11/06/19 11/06/19 21:01 21:31 21:52 Temperature 99.0 F 99 F Pulse Rate 112 H 112 H Respiratory 18 18 12 Rate Blood Pressure 99/65 Blood Pressure 99/65 [Right] O2 Sat by Pulse 98 98 Oximetry 11/06/19 22:00 Temperature Pulse Rate 107 H Respiratory 17 Rate Blood Pressure 106/75 Blood Pressure [Right] O2 Sat by Pulse 90 Oximetry - Reevaluation(s) Reevaluation #1: I discussed all results and clinical findings with patient. I discussed plan of care with patient. Patient agrees with plan of care. Patient is stable for discharge. Patient will be discharged home. Patient given discharge instructions. Patient voiced understanding of discharge instructions. 11/07/19 00:32 ED Medical Decision Making - Lab Data Result diagrams: 11/06/19 21:23 11/06/19 21:23 - EKG Data -: EKG Interpreted by Me EKG shows normal: sinus rhythm, axis, intervals, QRS complexes, ST-T waves Rate: tachycardia - Radiology Data Radiology results: report reviewed, image reviewed CHEST 2 VIEWS INDICATION / CLINICAL INFORMATION: Chest Pain. COMPARISON: One view of the chest from 10/26/2019. FINDINGS: SUPPORT DEVICES: None. HEART / MEDIASTINUM: No significant abnormality. LUNGS / PLEURA: No significant pulmonary or pleural abnormality. No pneumothorax. ADDITIONAL FINDINGS: No significant additional findings. IMPRESSION: 1. No acute abnormality of the chest. - Medical Decision Making Patient is a 39-year-old female that presents emergency room with complaints of lower extremity edema. Patient denies pain. Patient found to have nonpitting edema to her bilateral lower extremities of the ankle and foot regions. Patient in triage found to be tachycardia and had a cardiac work-up ordered. Patient's labs were essentially unremarkable. Patient tachycardia improved with time. Patient's EKG was negative for acute findings except for tachycardia. Patient's chest x-ray was negative for volume overload or pulmonary edema or acute findings. Patient stable for discharge. Patient had a prescription for Lasix. Patient given discharge instructions. - Differential Diagnosis Edema, tachycardia, salt imbalance, Critical care attestation.: If time is entered above; I have spent that time in minutes in the direct care of this critically ill patient, excluding procedure time. ED Disposition Clinical Impression: Swelling of lower extremity, Tachycardia, Hypokalemia Edema Qualifiers: Edema type: unspecified Qualified Code(s): R60.9 - Edema, unspecified Anemia Qualifiers: Anemia type: unspecified type Qualified Code(s): D64.9 - Anemia, unspecified Disposition: DC- TO HOME OR SELFCARE Is pt being admited?: No Does the pt Need Aspirin: No Condition: Stable Instructions: Leg Edema (ED) Additional Instructions: Patient to follow-up with primary care in 2 to 3 days. Patient to rest. Patient to increase water. Patient to decrease salt intake. Patient to monitor blood pressure at home. Patient to increase water. Patient to elevate extremities and place compression stockings.. Patient to take meds as directed. Patient to return to the ER if condition worsens, changes or new symptoms arise. Prescriptions: Potassium Chloride [K-Dur] 20 meq PO QDAY #30 tablet Furosemide [Lasix] 20 mg PO QDAY PRN #15 tablet PRN Reason: Edema Referrals: PRIMARY CARE, [Primary Care Provider] - 2-3 Days Time of Disposition: 00:36
[2019-11-06 22:33] LABS: Hematocrit 27.8 % (30.3-42.9); Mean Corpuscular HGB Conc 33 % (30-34); Mean Corpuscular Volume 97 fl (79-97); Platelet Count 510 K/mm3 (140-440); Red Blood Count 2.87 M/mm3 (3.65-5.03)
[2019-11-06 22:38] LABS: Red Cell Distribution Width 21.4 % (13.2-15.2)
[2019-11-06 22:40] LABS: INR 1.21 (0.87-1.13)
[2019-11-06 22:41] LABS: Partial Thromboplastin Time 31.9 Sec. (24.2-36.6)
[2019-11-06 22:44] LABS: Alanine Aminotransferase 23 units/L (7-56); Albumin 3.3 g/dL (3.9-5); BUN/Creatinine Ratio 10; Blood Urea Nitrogen 4 mg/dL (7-17); Calcium 8.9 mg/dL (8.4-10.2); Hemolysis Index 3
[2019-11-06 23:09] LABS: Total Cells Counted 100
[2019-11-06 23:10] LABS: Anisocytosis 1+; Macrocytosis 1+; Schistocytes Few; Target Cells Rare
[2019-11-06 23:17] VITALS: BP 106/75
[2019-11-06 23:52] LABS: Bilirubin,Urine NEG (Negative); Blood,Urine NEG (Negative); Color,Urine Straw (Yellow); Protein,Urine <15 mg/dL mg/dL (Negative); RBC,Urine < 1.0 /HPF (0.0-6.0); Urobilinogen,Urine < 2.0 mg/dL (<2.0)
--- NOTE | 2019-11-07 00:03 | XRay Report ---
CHEST 2 VIEWS INDICATION / CLINICAL INFORMATION: Chest Pain. COMPARISON: One view of the chest from 10/26/2019. FINDINGS: SUPPORT DEVICES: None. HEART / MEDIASTINUM: No significant abnormality. LUNGS / PLEURA: No significant pulmonary or pleural abnormality. No pneumothorax. ADDITIONAL FINDINGS: No significant additional findings. IMPRESSION: 1. No acute abnormality of the chest. Signer Name: Santhosh Senior MD Signed: 11/06/2019 11:59 PM Workstation Name: [id number]
== END 2019-11-07 00:43 | disposition home or self-care (01) ==
LOC: ED 20:52
DX: R22.43 Localized swelling, mass and lump, lower limb, bilateral (principal); E87.6 Hypokalemia; D64.9 Anemia, unspecified; R60.9 Edema, unspecified; R00.0 Tachycardia, unspecified; K21.9 Gastro-esophageal reflux disease without esophagitis; Z79.899 Other long term (current) drug therapy; Z98.890 Other specified postprocedural states
CPT/HCPCS: 36415; 71046; 80053; 81001; 83880; 84484; 84703; 85007; 85025; 85610; 85730; 93005